=== PATIENT | female | born 1945 | race Caucasian/White ===

== ENCOUNTER 2016-04-13 16:25 | Inpatient (IN) | payer MEDICARE, BC ==
[2016-04-13 16:25] VITALS: BMI 42.3
[2016-04-13] MEDS ORDERED: SODIUM CHLORIDE 0.9% 3 ML FLUSH FLUSH PRN (16:36)
[2016-04-13] MEDS ORDERED: Albuterol/Ipratropium Neb 3 ML NEB NEB ONE (16:44)
[2016-04-13] MEDS ORDERED: METHYLPREDNISOLONE 125 MG/2 ML VIAL IV ONE (16:44)
[2016-04-13] MEDS ORDERED: ALBUTEROL 0.083% 3 ML NEB NEB ONE (16:44)
--- NOTE | 2016-04-13 16:49 | EDPRACDOC ---
- General Information Information Source: Patient Mode Of Arrival: Car - History of Present Illness Onset: 2 DAYS HPI: PT C/O COUGH CONGESTION SOB FOR 2-3 DAYS WITH SPUTUM PRODUCTION YELLOW. PT DENIES FEVERS AND CHILLS. PT IS ABLE TO SPEAK IN COMPLETE SENTENCES. SHE WAS SENT FROM PMD OFFICE FOR HYPOXIA PO2 HIGH 70'S LOW 80'S AFTER NEBS. Shortness of Breath: Moderate Relevant History: Reports: COPD Cough: Reports: Productive, Yellow Rhinorrhea: Reports: None Ear Symptoms: Reports: None SOB Worsens with: Reports: Exertion, Coughing, Lying Flat, VAUGHAN SOB Improves with: Reports: Nothing Associated Signs and symptoms: Reports: Cough <Tal Palomo - Last Filed: 04/13/16 17:13> <Noah Madison - Last Filed: 04/13/16 20:43> - General Information Chief Complaint: Dyspnea/Resp distress Stated Complaint: LOW O2 SAT SENT BY DOCTOR'S OFFICE Time Seen by Provider: 04/13/16 16:39 Home Medications: Home Medications Levothyroxine [Synthroid, Levoxyl] 125 mcg PO DAILY 06/14/12 Pravastatin [Pravachol] 40 mg PO HS 06/14/12 Tramadol HCl [Ultram] 50 mg PO Q6H PRN 06/14/12 Triamterene/Hydrochlorothiazid [Triamterene-Hctz 37.5-25 mg Tb] 1 tab PO DAILY 06/14/12 Albuterol Sulfate [Ventolin Hfa] 1 - 2 puff INH Q4H PRN 04/13/16 Aspirin (Enteric Coated) [Ecotrin] 81 mg PO DAILY 04/13/16 BuPROPion (Daily formulation) [Wellbutrin Xl] 150 mg PO BID 04/13/16 Cholecalciferol (Vitamin D3) [Vitamin D3] 5,000 unit PO DAILY 04/13/16 Cyanocobalamin (Vitamin B-12) [Vitamin B-12] 500 mcg SL DAILY 04/13/16 Docusate Sodium [Colace] 100 mg PO HS 04/13/16 Fluticasone Propionate [Flonase Nasal [place]] 1 spray ZAIN DAILY 04/13/16 Loratadine [Claritin] 10 mg PO DAILY 04/13/16 Metformin HCl [Metformin HCl ER] 500 mg PO QHS 04/13/16 Tiotropium [place] [Spiriva Respimat] 4 gm INH DAILY 04/13/16 Allergies/Adverse Reactions: Allergies Allergy/AdvReac Type Severity Reaction Status Date / Time No Known Allergies Allergy Verified 04/13/16 16:31 ED Past Medical History - History Reviewed Yes Nurses notes reviewed and agree except as marked Travel Outside of [place] in the Last 3 Months?: No - Patient Medical History Cardiac History: Reports: Hypertension, Hypercholesterolemia Respiratory History: Reports: Asthma, COPD Systemic History: Reports: Diabetes - Social Medical History Smoking Status: Heavy tobacco smoker (5 or more cigarettes/day or daily pipe/ cigar) ETOH: None Substance Abuse: None Lives With: Other Lives In: Home <Tal Palomo - Last Filed: 04/13/16 17:13> EDM Review of Systems - Review of Systems ROS Negative Except as Marked: Yes All systems reviewed and were negative except as marked Constitutional: Weakness. negative: Chills, Fever, Fatigue, Loss of Appetite Eyes: No Symptoms Reported. negative: Redness, Blurred Vision, Double Vision, Discharge, Pain, Light Sensitive, Photophobia Ears: No Symptoms Reported. negative: Pain, Hearing Loss, Drainage, Ear Pulling Throat: No Symptoms Reported. negative: Pain, Swelling Nose: No Symptoms Reported. negative: Congestion, Bleeding, Discharge, Injection, Swelling, Deformity, Ecchymosis, Tender, Abrasion, Laceration Mouth: No Symptoms Reported. negative: Pain, Drooling Respiratory: Cough, Shortness of Breath, Wheezing, Sputum. negative: Barky Cough, Brassy Cough, Hemoptysis Cardiovascular: No Symptoms Reported. negative: Chest Pain, Cyanosis, Edema, Orthopnea, Palpitations, PND, Syncope, Skin Mottling Gastrointestinal: No Symptoms Reported. negative: Pain, Constipation, Nausea, Vomiting, Diarrhea, Melena, Formula Intolerance Genitourinary: No Symptoms Reported. negative: Dysuria, Hematuria, Frequency, Discharge, Bleeding, Testicular Pain, Neurological: No Symptoms Reported. negative: Headache, Dizziness, Seizure, Numbness, Weakness, Speech Difficulty, Gait Difficulty Musculoskeletal: No Symptoms Reported. negative: Neck, Chestwall, Ribs, Back, Shoulder, Arm, Elbow, Forearm, Wrist, Hand, Pelvis, Hip, Femur, Knee, Leg, Ankle , Foot Integumentary: No Symptoms Reported. negative: Itching, Rash, Bruising, Wound Allergic/Immunologic: No Symptoms Reported. negative: Hives, Itching Hematologic: No Symptoms Reported. negative: Lymphadenopathy, Easy Bruising, Easy Bleeding Endocrine: No Symptoms Reported. negative: Weight Gain, Weight Loss Psychiatric: No Symptoms Reported. negative: Anxiety, Depression, Hallucinations, Insomnia, Suicidal <Tal Palomo - Last Filed: 04/13/16 17:13> - Physical Exam Constitutional: Alert (Awake) Oriented to: Time, Person, Place Last recorded Vital Signs: Last Vital Signs Temp 99.0 F 04/13/16 16:28 Pulse 105 04/13/16 16:28 Resp 22 04/13/16 16:28 BP 188/80 H 04/13/16 16:28 Pulse Ox 84 L 04/13/16 16:28 Oxygen Pulse Oxygen Saturation 84 O2 Device Room Air Oxygen Flow Rate Fraction of Inspired Oxygen ( FIO2) - HEENT Head: Normal ( normocephalic) Eye Exam: Normal (PERRL, EOMI, Sclera white) Oropharynx: Normal (Pharynx:Moist without exudate,Gums-no swelling) Tympanic Membrane: Normal ENT EAC: Normal TMJ: Normal Nose: No Symptoms Reported (septum midline) Neck: Normal (FROM, trachea at midline) - Respiratory/Cardiovascular Respiratory: Diminished, Rhonchi (BILATERAL), Wheezes (BILATERAL) Cardiovascular: Tachycardia - GI Auscultation: Normal (NABS) Palpation: Normal (Soft,No rebound or guarding, non distended) Tenderness: Non tender Velásquez's Sign: Negative - Bladder: Normal - Musculoskeletal Back: Normal (Non-Tender) Extremities: Normal (Normal tone, Pulses 2+ No cyanosis or edema, FROM) - Integumentary Skin: Normal, Warm, Dry Lymphatics: Normal (no adenopathy) - Neurologic Memory Impaired: Normal Motor Function: Normal (Normal tone, Pulses 2+ No cyanosis or edema, FROM) Cranial Nerve: Normal (CN II-X11 intact sensation, strength 5/5) Cerebellar: Normal Mood Description: Normal Perception: Normal <Tal Palomo - Last Filed: 04/13/16 17:13> - Physical Exam Last recorded Vital Signs: Last Vital Signs Temp 99.0 F 04/13/16 20:00 Pulse 102 04/13/16 20:00 Resp 20 04/13/16 20:00 BP 186/84 H 04/13/16 20:00 Pulse Ox 93 04/13/16 20:00 Oxygen Pulse Oxygen Saturation 92 O2 Device Nasal Cannula Oxygen Flow Rate 4 Fraction of Inspired Oxygen ( FIO2) <Noah Madison - Last Filed: 04/13/16 20:43> ED SOB MDM - Differential Diagnosis Differential Diagnosis: Asthma, Pnuemonia, Other (COPD EXACERBATION) - Results Result Diagrams: 04/13/16 16:56 04/13/16 16:56 - EKG EKG #1 EKG Time: 17:02 -: Yes EKG interpreted by me Rate: bpm: 101 [place]: LAD Rhythm: ST Block: LBBB Hypertrophy: None ST: Normal <Tal Palomo - Last Filed: 04/13/16 17:13> - Results Result Diagrams: 04/13/16 16:56 04/13/16 16:56 Results: WBC 14.7 xk/uL (3.8-10.8) H 04/13/16 16:56 RBC 4.85 xM/uL (4.20-5.40) 04/13/16 16:56 Hgb 13.6 g/dL (12.0-16.0) 04/13/16 16:56 Hct 42.3 % (36-47) 04/13/16 16:56 MCV 87 fL (81-99) 04/13/16 16:56 MCH 28.0 pg (27-32) 04/13/16 16:56 MCHC 32.0 g/dl (33-36) L 04/13/16 16:56 RDW 13.9 % (11.5-14.5) 04/13/16 16:56 Plt Count 354 xk/uL (130-400) 04/13/16 16:56 MPV 8.3 fL (7.4-10.4) 04/13/16 16:56 Neut % (Auto) Cancelled 04/13/16 16:56 Lymph % (Auto) Cancelled 04/13/16 16:56 [place] % (Auto) Cancelled 04/13/16 16:56 Eos % (Auto) Cancelled 04/13/16 16:56 Baso % (Auto) Cancelled 04/13/16 16:56 Absolute Neuts (auto) Cancelled 04/13/16 16:56 Absolute Lymphs (auto) Cancelled 04/13/16 16:56 Seg Neuts % (Manual) 87 % (45-76) H 04/13/16 16:56 Band Neutrophils % 2 % (0-5) 04/13/16 16:56 Lymphocytes % (Manual) 7 % (17-44) L 04/13/16 16:56 Monocytes % (Manual) 4 % (0-10) 04/13/16 16:56 Absolute Neutrophils 13.08 xk/uL (1.7-8.2) H 04/13/16 16:56 Absolute Lymphocytes 1.03 xk/uL (0.65-4.75) 04/13/16 16:56 Platelet Estimate Norm (NORMAL) 04/13/16 16:56 RBC Morphology Norm 04/13/16 16:56 PT 11.5 SEC (9.2-11.2) H 04/13/16 16:56 INR 1.1 04/13/16 16:56 APTT 25.0 SEC (22-35) 04/13/16 16:56 Puncture Site Right radial 04/13/16 16:45 pH 7.360 pH UNITS (7.35-7.45) 04/13/16 16:45 pCO2 58.0 mmHg (35-45) H 04/13/16 16:45 pO2 41.0 mmHg (80-100) L* 04/13/16 16:45 HCO3 32.8 MMOL/L (22-26) H 04/13/16 16:45 Total CO2 34.6 MMOL/L (23-27) H 04/13/16 16:45 Base Excess 5.6 (+/- 2) H 04/13/16 16:45 FiO2 % 21% 04/13/16 16:45 Specimen Drawn By Ga 04/13/16 16:45 Sodium 134 mEq/L (137-146) L 04/13/16 16:56 Potassium 3.8 mEq/L (3.5-5.1) 04/13/16 16:56 Chloride 92 mEq/L (98-107) L 04/13/16 16:56 Carbon Dioxide 34 mMOL/L (22-33) H 04/13/16 16:56 Anion Gap 12 mEq/L (8-16) 04/13/16 16:56 BUN 20 MG/DL (7-17) H 04/13/16 16:56 Creatinine 0.90 MG/DL (0.52-1.04) 04/13/16 16:56 Estimated GFR (MDRD) > 60 mL/min (>=60) 04/13/16 16:56 Glucose 138 MG/DL (70-99) H 04/13/16 16:56 Calculated Osmolality 263 MOs/Kg (270-290) L 04/13/16 16:56 Lactic Acid 0.8 mEq/L (0.7-2.1) 04/13/16 16:56 Calcium 9.2 MG/DL (8.4-10.2) 04/13/16 16:56 Corrected Calcium 9.8 MG/DL (8.4-10.2) 04/13/16 16:56 Total Bilirubin 0.4 MG/DL (0.2-1.3) 04/13/16 16:56 AST 35 IU/L (14-36) 04/13/16 16:56 ALT 48 IU/L (9-52) 04/13/16 16:56 Alkaline Phosphatase 108 IU/L (55-165) 04/13/16 16:56 Creatine Kinase 108 IU/L (30-134) 04/13/16 16:56 Troponin I 0.05 ng/mL (<.04) 04/13/16 16:56 Bva-S-Ceoguahpdig Pept 7120 pg/mL (0-900) H 04/13/16 16:56 Total Protein 6.6 G/DL (6.3-8.2) 04/13/16 16:56 Albumin 3.4 G/DL (3.5-5.0) L 04/13/16 16:56 Urine Color Yellow 04/13/16 17:40 Urine Clarity Hazy 04/13/16 17:40 Urine pH 6.0 (5.0-8.0) 04/13/16 17:40 Ur Specific [place] 1.030 04/13/16 17:40 Urine Protein 1+ (NEG/TRACE) H 04/13/16 17:40 Urine Glucose (UA) Neg (NEGATIVE) 04/13/16 17:40 Urine Ketones Neg (NEGATIVE) 04/13/16 17:40 Urine Occult Blood Neg (NEG/TRACE) 04/13/16 17:40 Urine Nitrite Neg (NEGATIVE) 04/13/16 17:40 Urine Bilirubin Neg (NEGATIVE) 04/13/16 17:40 Urine Urobilinogen 0.2 MG/DL (0-1) 04/13/16 17:40 Ur Leukocyte Esterase 1+ (NEGATIVE) H 04/13/16 17:40 Urine RBC 0-2 (0-5) 04/13/16 17:40 Urine WBC 20-30 (0-5) H 04/13/16 17:40 Ur Epithelial Cells 4+ 04/13/16 17:40 Urine Bacteria 3+ (NEG/FEW) H 04/13/16 17:40 Hyaline Casts 10-20 (0-2) H 04/13/16 17:40 Lab Results 04/13/16 04/13/16 04/13/16 17:40 16:56 16:56 WBC 14.7 H RBC 4.85 Hgb 13.6 Hct 42.3 MCV 87 MCH 28.0 MCHC 32.0 L RDW 13.9 Plt Count 354 MPV 8.3 Neut % (Auto) Cancelled Lymph % (Auto) Cancelled [place] % (Auto) Cancelled Eos % (Auto) Cancelled Baso % (Auto) Cancelled Absolute Neuts (auto) Cancelled Absolute Lymphs (auto) Cancelled Seg Neuts % (Manual) 87 H Band Neutrophils % 2 Lymphocytes % (Manual) 7 L Monocytes % (Manual) 4 Absolute Neutrophils 13.08 H Absolute Lymphocytes 1.03 Platelet Estimate Norm RBC Morphology Norm PT 11.5 H INR 1.1 APTT 25.0 Puncture Site pH pCO2 pO2 HCO3 Total CO2 Base Excess FiO2 % Specimen Drawn By Sodium Potassium Chloride Carbon Dioxide Anion Gap BUN Creatinine Estimated GFR (MDRD) Glucose Calculated Osmolality Lactic Acid Calcium Corrected Calcium Total Bilirubin AST ALT Alkaline Phosphatase Creatine Kinase Troponin I Xwg-[id number] Pept Total Protein Albumin Urine Color Yellow Urine Clarity Hazy Urine pH 6.0 Ur Specific [place] 1.030 Urine Protein 1+ H Urine Glucose (UA) Neg Urine Ketones Neg Urine Occult Blood Neg Urine Nitrite Neg Urine Bilirubin Neg Urine Urobilinogen 0.2 Ur Leukocyte Esterase 1+ H Urine RBC 0-2 Urine WBC 20-30 H Ur Epithelial Cells 4+ Urine Bacteria 3+ H Hyaline Casts 10-20 H 04/13/16 04/13/16 04/13/16 16:56 16:56 16:45 WBC RBC Hgb Hct MCV MCH MCHC RDW Plt Count MPV Neut % (Auto) Lymph % (Auto) [place] % (Auto) Eos % (Auto) Baso % (Auto) Absolute Neuts (auto) Absolute Lymphs (auto) Seg Neuts % (Manual) Band Neutrophils % Lymphocytes % (Manual) Monocytes % (Manual) Absolute Neutrophils Absolute Lymphocytes Platelet Estimate RBC Morphology PT INR APTT Puncture Site Right radial pH 7.360 pCO2 58.0 H pO2 41.0 L* HCO3 32.8 H Total CO2 34.6 H Base Excess 5.6 H FiO2 % 21% Specimen Drawn By Ga Sodium 134 L Potassium 3.8 Chloride 92 L Carbon Dioxide 34 H Anion Gap 12 BUN 20 H Creatinine 0.90 Estimated GFR (MDRD) > 60 Glucose 138 H Calculated Osmolality 263 L Lactic Acid 0.8 Calcium 9.2 Corrected Calcium 9.8 Total Bilirubin 0.4 AST 35 ALT 48 Alkaline Phosphatase 108 Creatine Kinase 108 Troponin I 0.05 Ptr-S-Snzdpmdsnen Pept 7120 H Total Protein 6.6 Albumin 3.4 L Urine Color Urine Clarity Urine pH Ur Specific [place] Urine Protein Urine Glucose (UA) Urine Ketones Urine Occult Blood Urine Nitrite Urine Bilirubin Urine Urobilinogen Ur Leukocyte Esterase Urine RBC Urine WBC Ur Epithelial Cells Urine Bacteria Hyaline Casts <Noah Madison - Last Filed: 04/13/16 20:43> <Tal Palomo - Last Filed: 04/13/16 17:13> - Departure Yes I personally saw and evaluated the patient. Disposition: Admit IP To This Hospital Decision to Admit Time: 18:20 Decision to admit date: 04/13/16 Decision to admit: from ED <Noah Madison - Last Filed: 04/13/16 20:43> - Departure Condition: Stable Final Diagnosis: Acute respiratory failure with hypoxia, Elevated brain natriuretic peptide (BNP ) level, COPD exacerbation, Acute cystitis without hematuria
[2016-04-13 16:50] LABS: BEb 5.6 (+/- 2); TCO2 34.6 MMOL/L (23-27)
[2016-04-13 16:51] LABS: ABG Draw Site Right Radial; ABG Draw Tech GA; ALLEN'S TEST PASS
[2016-04-13 17:06] LABS: MPV 8.3 fL (7.4-10.4)
[2016-04-13 17:27] LABS: BLOOD UREA NITROGEN 20 MG/DL (7-17); CALC CORRECTED 9.8 MG/DL (8.4-10.2); CALCIUM 9.2 MG/DL (8.4-10.2); CALCULATED OSMOLALITY 263 MOs/Kg (270-290); CHLORIDE 92 mEq/L (98-107); GLUCOSE 138 MG/DL (70-99); SODIUM LEVEL 134 mEq/L (137-146); TOTAL PROTEIN 6.6 G/DL (6.3-8.2)
[2016-04-13 17:30] LABS: PT-INR 1.1
[2016-04-13 17:32] LABS: SEG NEUTROPHIL 87 % (45-76)
[2016-04-13 17:35] LABS: CPK TOTAL WITH POSSIBLE MB 108 IU/L (30-134)
--- NOTE | 2016-04-13 17:42 | DIRPT ---
CLINICAL DATA: 70-year-old female with history of coughing congestion with shortness of breath for the past 2-3 days with yellow sputum production. No fever or chills. EXAM: PORTABLE CHEST 1 VIEW COMPARISON: Chest x-ray 09/29/2011. FINDINGS: Mild diffuse peribronchial cuffing. No acute consolidative airspace disease. No pleural effusions. Cephalization of the pulmonary vasculature, without juma pulmonary edema. Heart size is mildly enlarged. The patient is rotated to the right on today's exam, resulting in distortion of the mediastinal contours and reduced diagnostic sensitivity and specificity for mediastinal pathology. IMPRESSION: 1. Diffuse peribronchial cuffing suggesting an acute bronchitis. 2. However, there is also mild cardiomegaly and some cephalization of the pulmonary vasculature. Clinical correlation to exclude signs are symptoms of developing congestive heart failure is also suggested. Electronically Signed By: Pelon Lopez M.D. On: 04/13/2016 17:39
[2016-04-13] MEDS ORDERED: FUROSEMIDE 40 MG/4 ML VIAL IV ONE (17:48)
[2016-04-13] MEDS ORDERED: ASPIRIN 325 MG TAB PO ONE (17:49)
[2016-04-13] MEDS ORDERED: AZITHROMYCIN 500 MG in D5W 250 ML IV ONE (17:49)
[2016-04-13] MEDS ORDERED: CEFTRIAXONE 2 GM in D5W 100 ML IV ONE (17:49)
[2016-04-13 17:53] LABS: LEUKOCYTES/URINE 1+ (NEGATIVE); NITRITE/URINE NEG (NEGATIVE); URINE OCCULT BLOOD NEG (NEG/TRACE)
[2016-04-13 17:57] LABS: RBC/URINE 0-2 (0-5); WBC/URINE 20-30 (0-5)
[2016-04-13] MEDS ORDERED: SODIUM CHLORIDE 0.9% 3 ML FLUSH FLUSH SCH (18:00)
--- NOTE | 2016-04-13 18:36 | HISTPHYS ---
- Chief Complaint shortness of breath - History of Present Illness PRIMARY CARE PROVIDER: Ester Siddiqui HPI: The patient is a 70 yo woman with hypertension, hyperlipidemia, diabetes, and COPD, who smokes, who presents with acute shortness of breath and not feeling well. She reports she was in her usual state of health until 4 days ago, when she started feeling bad; she had increased shortness of breath and increased fatigue. Each day she was more short of breath, especially with any exertion, and by today she is short of breath even while sitting. She had some coughing initially but today she had even more coughing, which is productive of white sputum today. She has had wheezing also. By last night, she started having significant diaphoresis, and she felt clammy. She has not really been able to do much at all over the last several days because she does not feel well. She has not been eating much over this time and at her doctor's office visit she was told that she had lost some weight. She has not noticed any weight gain, leg swelling, bloating, or clothes fitting more tightly. She did not have any fevers, chills, or chest pain. Onset: initial symptoms started 4 days ago, much more short of breath today. Duration: intermittent. Location: generalized. Character: Mostly dyspnea on exertion at first. Now short of breath at rest and can't get a good breath. Alleviated by: Nothing. Exacerbated by: exertion. Associated Symptoms: Coughing productive of white sputum. Wheezing. Diaphoresis and becoming clammy. Decreased PO intake. No fever or chills. No chest pain, palpitations, weight gain, or leg swelling. Nausea but no abdominal pain. Treatments: none at home except usual medications. - Medical History Cardiac History: Reports: Hypertension, Stress Test (at [facility] September 2011, negative.), Hypercholesterolemia, Other (LEFT BUNDLE BRANCH BLOCK, noted by [facility] 2011.) Respiratory History: Reports: Asthma, COPD (does not wear home oxygen) Systemic History: Reports: Diabetes (Type 2, borderline), Hypothyroidism - Surgical History Reports: Hysterectomy, Other (PARATHYROIDECTOMY) - Medictions/Allergies Allergies No Known Allergies Allergy (Verified 04/13/16 16:31) Current Medication List: Reviewed Home Medications Levothyroxine [Synthroid, Levoxyl] 125 mcg PO DAILY 06/14/12 Pravastatin [Pravachol] 40 mg PO HS 06/14/12 Tramadol HCl [Ultram] 50 mg PO Q6H PRN 06/14/12 Triamterene/Hydrochlorothiazid [Triamterene-Hctz 37.5-25 mg Tb] 1 tab PO DAILY 06/14/12 Albuterol Sulfate [Ventolin Hfa] 1 - 2 puff INH Q4H PRN 04/13/16 BuPROPion (Daily formulation) [Wellbutrin Xl] 150 mg PO BID 04/13/16 Cholecalciferol (Vitamin D3) [Vitamin D3] 5,000 unit PO DAILY 04/13/16 Cyanocobalamin (Vitamin B-12) [Vitamin B-12] 500 mcg SL DAILY 04/13/16 Fluticasone Propionate [Flonase Nasal [place]] 1 spray ZAIN DAILY 04/13/16 Metformin HCl [Metformin HCl ER] 500 mg PO QHS 04/13/16 Tiotropium [place] [Spiriva Respimat] 4 gm INH DAILY 04/13/16 - Family History Reports: Diabetes (Brother), Cancer (Father: pancreatic cancer 60yo.), Cardiac Disorders (Brother with [place] and CABG. Mother: CHF but in her 90s.) - Social History Smoking Status: Heavy tobacco smoker (5 or more cigarettes/day or daily pipe/ cigar) (Smokes 1 ppd. Started 17 yo.) Social History: Denies: Alcohol Use, Substance Use Disorder - Review of Systems GENERAL: Diaphoresis and becoming clammy. No Fever, chills. Positive for fatigue /malaise. Decreased PO intake. HEENT: No ear pain or discharge. No nasal discharge or bleeding. No throat pain or swelling. No eye pain or eye redness. RESPIRATORY: Cough, wheezing, and shortness of breath. CARDIOVASCULAR: No chest pain or palpitations. GI: Nausea. No abdominal pain, vomiting, diarrhea, constipation, or bloody stool. NEUROLOGICAL: No headache or focal weakness. INTEGUMENT: no rashes, itching, or lesions. LYMPHATIC SYSTEM: no lymph node swelling or pain. MUSCULOSKELETAL: no new pain or joint swelling. GENITOURINARY: No dysuria or hematuria. ENDOCRINE: No polyuria or polydipsia. HEME: No chronic anemia, bleeding, or easy bruising. - Physical Exam Vital Signs: Initial Vitals Temperature 99.0 F 04/13/16 16:28 Pulse Rate 105 01/16/17 16:28 Respiratory Rate 22 04/13/16 16:28 Blood Pressure 188/80 H 04/13/16 16:28 Pulse Oxygen Saturation 84 L 04/13/16 16:28 Weight: 122.7 kg Height: 5 feet 7 inches BMI: 42.4 - Other Exam Other Exam Findings: GENERAL: Ill-appearing, obese, in acute distress. HEENT: Normocephalic, atraumatic; pupils equal and round. Nares patent, without discharge or bleeding. No oropharyngeal lesions or erythema. Mucous membranes are dry. NECK: is supple, no masses, trachea midline. Large neck circumference. RESPIRATORY: Clear to auscultation bilaterally. Chest wall movements are symmetric. Tachypnea noted. No use of accessory muscles to breathe. Rales noted bilaterally. Coarse breath sounds with wheezing bilaterally. CARDIOVASCULAR: Normal S1, S2. Murmur 2/6 systolic. No rubs, or gallops. PMI non -displaced. Carotids: no carotid bruits. Mild tachycardia. DP pulses 2+ bilaterally. Slight JVD. GI: soft, nontender, non-distended, normal active bowel sounds. No hepatosplenomegaly. INTEGUMENT: Clean, slightly diaphoretic, and intact. No rashes. No lesions. MUSCULOSKELETAL: Moving all extremities. No cyanosis. No clubbing. Edema: trace lower extremity edema bilaterally. NEUROLOGICAL: Cranial nerves 2-12 grossly intact. Motor 5/5 throughout. Reflexes : 2+ bilaterally. Babinski: toes downgoing bilaterally. Intact Finger to nose. Sensory grossly intact to light touch. Intact rapid alternating movements bilaterally. No pronator drift. PSYCHIATRIC: Fully oriented. Normal and appropriate affect. LYMPHATIC: No cervical lymphadenopathy. No supraclavicular lymphadenopathy. - Lab Results Laboratory Results - last 24 hr 04/13/16 04/13/16 04/13/16 16:45 16:56 16:56 WBC RBC Hgb Hct MCV MCH MCHC RDW Plt Count MPV Neut % (Auto) Lymph % (Auto) Dewitt % (Auto) Eos % (Auto) Baso % (Auto) Absolute Neuts (auto) Absolute Lymphs (auto) Seg Neuts % (Manual) Band Neutrophils % Lymphocytes % (Manual) Monocytes % (Manual) Absolute Neutrophils Absolute Lymphocytes Platelet Estimate RBC Morphology PT INR APTT Puncture Site Right radial pH 7.360 pCO2 58.0 H pO2 41.0 L* HCO3 32.8 H Total CO2 34.6 H Base Excess 5.6 H FiO2 % 21% Specimen Drawn By Ga Sodium 134 L Potassium 3.8 Chloride 92 L Carbon Dioxide 34 H Anion Gap 12 BUN 20 H Creatinine 0.90 Estimated GFR (MDRD) > 60 Glucose 138 H Calculated Osmolality 263 L Lactic Acid 0.8 Calcium 9.2 Corrected Calcium 9.8 Total Bilirubin 0.4 AST 35 ALT 48 Alkaline Phosphatase 108 Creatine Kinase 108 Troponin I 0.05 Xcc-S-Peicuznwrme Pept 7120 H Total Protein 6.6 Albumin 3.4 L Urine Color Urine Clarity Urine pH Ur Specific [place] Urine Protein Urine Glucose (UA) Urine Ketones Urine Occult Blood Urine Nitrite Urine Bilirubin Urine Urobilinogen Ur Leukocyte Esterase Urine RBC Urine WBC Ur Epithelial Cells Urine Bacteria Hyaline Casts 04/13/16 04/13/16 04/13/16 16:56 16:56 17:40 WBC 14.7 H RBC 4.85 Hgb 13.6 Hct 42.3 MCV 87 MCH 28.0 MCHC 32.0 L RDW 13.9 Plt Count 354 MPV 8.3 Neut % (Auto) Cancelled Lymph % (Auto) Cancelled Dewitt % (Auto) Cancelled Eos % (Auto) Cancelled Baso % (Auto) Cancelled Absolute Neuts (auto) Cancelled Absolute Lymphs (auto) Cancelled Seg Neuts % (Manual) 87 H Band Neutrophils % 2 Lymphocytes % (Manual) 7 L Monocytes % (Manual) 4 Absolute Neutrophils 13.08 H Absolute Lymphocytes 1.03 Platelet Estimate Norm RBC Morphology Norm PT 11.5 H INR 1.1 APTT 25.0 Puncture Site pH pCO2 pO2 HCO3 Total CO2 Base Excess FiO2 % Specimen Drawn By Sodium Potassium Chloride Carbon Dioxide Anion Gap BUN Creatinine Estimated GFR (MDRD) Glucose Calculated Osmolality Lactic Acid Calcium Corrected Calcium Total Bilirubin AST ALT Alkaline Phosphatase Creatine Kinase Troponin I Hqq-W-Zruthtzznlr Pept Total Protein Albumin Urine Color Yellow Urine Clarity Hazy Urine pH 6.0 Ur Specific [place] 1.030 Urine Protein 1+ H Urine Glucose (UA) Neg Urine Ketones Neg Urine Occult Blood Neg Urine Nitrite Neg Urine Bilirubin Neg Urine Urobilinogen 0.2 Ur Leukocyte Esterase 1+ H Urine RBC 0-2 Urine WBC 20-30 H Ur Epithelial Cells 4+ Urine Bacteria 3+ H Hyaline Casts 10-20 H - Diagnostic Findings DIAGNOSTIC DATA: EK bpm. Sinus tachycardia. Left bundle branch block. Reviewed EKG personally. IMAGING: Chest x-ray, viewed personally: CLINICAL DATA: 70-year-old female with history of coughing congestion with shortness of breath for the past 2-3 days with yellow sputum production. No fever or chills. EXAM: PORTABLE CHEST 1 VIEW COMPARISON: Chest x-ray 09/29/2011. FINDINGS: Mild diffuse peribronchial cuffing. No acute consolidative airspace disease. No pleural effusions. Cephalization of the pulmonary vasculature, without juma pulmonary edema. Heart size is mildly enlarged. The patient is rotated to the right on today's exam, resulting in distortion of the mediastinal contours and reduced diagnostic sensitivity and specificity for mediastinal pathology. IMPRESSION: 1. Diffuse peribronchial cuffing suggesting an acute bronchitis. 2. However, there is also mild cardiomegaly and some cephalization of the pulmonary vasculature. Clinical correlation to exclude signs are symptoms of developing congestive heart failure is also suggested. - Assessment (1) Acute respiratory failure with hypoxia J96.01 - ACUTE RESPIRATORY FAILURE WITH HYPOXIA Acute Present on Admission: Yes Patient has dyspnea and is not improving. Patient's PO2 is low at only 41%. Peripheral O2 sat 84%. COPD exacerbation is certainly part of the cause of her acute respiratory failure, but suspect she also may have a component of early CHF. Plan: Place patient on oxygen by Venti Mask 40% and increase as needed. Monitor oxygen saturation levels and keep O2 sats greater than 92%. Update: Patient was improving but then slightly worse after talking. Trial of BiPAP, 10/5, and titrate. (2) Elevated brain natriuretic peptide (BNP) level R79.89 - OTHER SPECIFIED ABNORMAL FINDINGS OF BLOOD CHEMISTRY Acute Present on Admission: Yes Elevated BNP and CXR with cardiomegaly and possible mild pulmonary edema. No history of CHF. Does have LBBB. Echocardiogram results from past: none. Plan: Admit to PCU with telemetry. Consider mild CHF as possible diagnosis. CHF order set. Diet of 2 g Na. Daily weights with strict I/O's. No IVF unless patient is NPO. As tolerated, give beta pierre. Give IGL inhibitor or ARB. Give Lasix IV scheduled. Replace potassium. Monitor heart rate, blood pressure, and respiratory status carefully. Provide support with oxygen as needed. Provide teaching regarding heart failure, 2g Na diet, daily weights, signs of acute heart failure. Will consult extraction supervisor for opinion. Discussed case in detail with Dr. Aponte , who will consult. Appreciate assistance from Dr. Aponte. (3) Hypertensive urgency I16.0 - HYPERTENSIVE URGENCY Acute Present on Admission: Yes Blood pressures 188-200/70-93 in the emergency department. Plan: Start carvedilol bid. Start lisinopril. Lasix ordered. Additional medications if needed. (4) COPD exacerbation J44.1 - CHRONIC OBSTRUCTIVE PULMONARY DISEASE W (ACUTE) EXACERBATION Acute Present on Admission: Yes COPD exacerbation, severe. Plan: Nebs of Duoneb q 6 hours scheduled and albuterol q 2 hours prn. Sputum culture ordered. IV ceftriaxone and IV azithromycin. IV methylprednisolone. Continuous oxygen support. Keep sats below 95% due to COPD. (5) Tobacco abuse Z72.0 - TOBACCO USE Acute Present on Admission: Yes Counseled to quit. (6) Acute cystitis without hematuria N30.00 - ACUTE CYSTITIS WITHOUT HEMATURIA Suspected Present on Admission: Yes Did not have dysuria. Plan: Cultures ordered. Cover empirically with IV ceftriaxone. Await culture results. (7) Bronchopneumonia J18.0 - BRONCHOPNEUMONIA, UNSPECIFIED ORGANISM Suspected Present on Admission: Yes CXR suggestive of bronchitis or infectious process. She may have bronchitis or bronchopneumonia. Plan: Cultures ordered. Cover empirically with IV ceftriaxone and IV azithromycin. (8) Left bundle branch block (LBBB) I44.7 - LEFT BUNDLE-BRANCH BLOCK, UNSPECIFIED Acute Present on Admission: Yes Initially thought that LBBB could be new; there was no old EKG for comparison. Discussed case with Dr. Aponte, who reviewed his office records to find that she did have LBBB when she was evaluated in 2012. Greatly appreciate the assistance of Dr. Aponte. (9) Abnormal glucose R73.09 - OTHER ABNORMAL GLUCOSE Acute Present on Admission: Yes Patient reports she has borderline diabetes. Plan: Hold oral diabetes medications. Check fingerstick blood sugars q ac and hs. Sliding scale insulin. Ordered A1c and urine microalbumin. - Plan Discussed with patient that she is at risk for obstructive sleep apnea; relative who was with her stated that the patient does snore and seem to stop breathing for a second sometimes while asleep. Recommended that patient follow up with her primary care doctor to see if she would benefit from a sleep study. In summary, this patient is acutely and critically ill. The patient requires treatment of vital organ failure and measures to prevent further life- threatening deterioration of condition. Discussed case in detail with extraction supervisor, Dr. Aponte. I have spent 60 min in the critical care of this patient. Case Care Discussed with: Patient, Consultants (Turn Machine Operator, Dr. Aponte), Family, Nursing Staff Total Time: 60 min Critical Care: Yes Code: 291
[2016-04-13] MEDS ORDERED: TRAMADOL HCL 50 MG TAB PO PRN (19:54)
[2016-04-13] MEDS ORDERED: MORPHINE 2 MG/ML INJECTION IV PRN (20:25)
[2016-04-13] MEDS ORDERED: NITROGLYCERINE 0.4 MG TAB SL PRN (20:25)
[2016-04-13] MEDS ORDERED: LISINOPRIL 5 MG TAB PO ONE (20:29)
[2016-04-13] MEDS ORDERED: BISACODYL 5 MG TAB PO PRN (20:35)
[2016-04-13] MEDS ORDERED: ACETAMINOPHEN 325 MG SUPP PR PRN (20:35)
[2016-04-13] MEDS ORDERED: GLUCOSE (ORAL GEL) 15 GM TUBE PO PRN (20:35)
[2016-04-13] MEDS ORDERED: GUAIFEN 100 MG-DEXTROMETH 10 MG PER 5 ML PO PRN (20:35)
[2016-04-13] MEDS ORDERED: PROMETHAZINE 25 MG/ML VIAL IV PRN (20:35)
[2016-04-13] MEDS ORDERED: ALBUTEROL 0.083% 3 ML NEB NEB PRN (20:35)
[2016-04-13] MEDS ORDERED: GLUCAGON 1 MG VIAL SQ PRN (20:35)
[2016-04-13] MEDS ORDERED: ONDANSETRON HCL 4 MG/2 ML VIAL IV PRN (20:35)
[2016-04-13] MEDS ORDERED: TEMAZEPAM 15 MG CAP PO PRN (20:35)
[2016-04-13] MEDS ORDERED: SIMETHICONE 80 MG TAB PO PRN (20:35)
[2016-04-13] MEDS ORDERED: ACETAMINOPHEN 325 MG/TAB TABLET PO PRN (20:35)
[2016-04-13] MEDS ORDERED: DEXTROSE 25 GM/50 ML PFS IV PRN (20:35)
[2016-04-13] MEDS ORDERED: BENZONATATE 100 MG PERLES PO PRN (20:35)
[2016-04-13] MEDS ORDERED: SENNA CONCENTRATE TAB PO PRN (20:35)
[2016-04-13] MEDS ORDERED: Vaccine Screening Complete SCH (21:00)
[2016-04-13] MEDS ORDERED: Pharmacy Order Set Alert SCH (21:00)
[2016-04-13] MEDS ORDERED: FLUTICASONE PROPIONATE 16 GM BOT NAS SCH (21:00)
[2016-04-13] MEDS: LISINOPRIL 5 MG TAB PO SCH (22:17)
[2016-04-13] MEDS: BuPROPion 150 MG XL TAB PO SCH (22:37)
[2016-04-13] MEDS: ATORVASTATIN 40 MG TAB PO SCH (22:37)
[2016-04-13] MEDS: CARVEDILOL 6.25 MG TAB PO SCH (22:37)
[2016-04-13] MEDS: ENOXAPARIN 60 MG/0.6 ML PFS SQ SCH (22:38)
[2016-04-13] MEDS: FUROSEMIDE 40 MG/4 ML VIAL IV SCH (22:38)
[2016-04-13] MEDS: Docusate Sodium 100 MG CAP PO SCH (22:38)
[2016-04-13] MEDS: REGULAR INSULIN 100 UNITS/ML - 3 ML VIAL SQ SCH (22:39)
[2016-04-14] MEDS: METHYLPREDNISOLONE 125 MG/2 ML VIAL IV SCH ×3 (00:19→17:04)
[2016-04-14] MEDS: Albuterol/Ipratropium Neb 3 ML NEB NEB SCH ×4 (01:35→21:25)
[2016-04-14 05:51] LABS: MPV 8.7 fL (7.4-10.4)
[2016-04-14 06:05] LABS: BLOOD UREA NITROGEN 24 MG/DL (7-17); CALCULATED OSMOLALITY 264 MOs/Kg (270-290); CHLORIDE 87 mEq/L (98-107); GLUCOSE 130 MG/DL (70-99); SODIUM LEVEL 134 mEq/L (137-146)
[2016-04-14] MEDS: REGULAR INSULIN 100 UNITS/ML - 3 ML VIAL SQ SCH ×4 (06:30→19:29)
[2016-04-14] MEDS: LEVOTHYROXINE 125 MCG (0.125 MG) TAB PO SCH (06:30)
[2016-04-14] MEDS: FUROSEMIDE 40 MG/4 ML VIAL IV SCH ×3 (06:31→19:31)
--- NOTE | 2016-04-14 07:54 | PCM.CARDCO ---
Consultation Date: 04/14/16 Requesting Physician: Kai Trevino Workers Compensation Paralegal: Milind Aponte Consult Reason: CHF - History of Present Illness She is a 70-year-old woman with a history of COPD left bundle branch block who was evaluated in 2011 by with left bundle branch block normal ejection fraction and normal myocardial perfusion image, however the EF by nuclear was 46%. She was not diagnosed with heart failure at that time. Now admitted to the hospital with hypoxemia shortness of breath her BNP level severely elevated. Her chest x-ray is abnormal with findings of both chronic lung disease as well as heart failure. She is at risk of heart failure with hypertension and left bundle branch block. She relates an abrupt change in her symptoms prior to presented to the hospital that she correlates with cough and sputum production increased wheezing. She had a rapid progression exertional dyspnea to being short of breath at rest with hypoxia also relates she had orthopnea and PND. She is unaware she had edema. She had salt to her diet. She has had no chest pain palpitation or syncope. Chief Complaint: shortness of breath - Past Medical and Surgical History Cardiac History: Reports: Hypertension, Stress Test (at [facility] September 2011, negative.), Hypercholesterolemia, Other (LEFT BUNDLE BRANCH BLOCK, noted by [facility] 2011.) Respiratory History: Reports: Asthma, COPD (does not wear home oxygen) Systemic History: Reports: Diabetes (Type 2, borderline), Hypothyroidism Psychological History: Denies: Alcoholism, Substance Use Disorder Past Surgical History: Reports: Hysterectomy, Other (PARATHYROIDECTOMY) Allergies No Known Allergies Allergy (Verified 04/13/16 16:31) Home Medications Levothyroxine [Synthroid, Levoxyl] 125 mcg PO DAILY 06/14/12 Pravastatin [Pravachol] 40 mg PO HS 06/14/12 Tramadol HCl [Ultram] 50 mg PO Q6H PRN 06/14/12 Triamterene/Hydrochlorothiazid [Triamterene-Hctz 37.5-25 mg Tb] 1 tab PO DAILY 06/14/12 Albuterol Sulfate [Ventolin Hfa] 1 - 2 puff INH Q4H PRN 04/13/16 Aspirin (Enteric Coated) [Ecotrin] 81 mg PO DAILY 04/13/16 BuPROPion (Daily formulation) [Wellbutrin Xl] 150 mg PO BID 04/13/16 Cholecalciferol (Vitamin D3) [Vitamin D3] 5,000 unit PO DAILY 04/13/16 Cyanocobalamin (Vitamin B-12) [Vitamin B-12] 1,000 mcg SL DAILY 04/13/16 Docusate Sodium [Colace] 100 mg PO HS 04/13/16 Fluticasone Propionate [Flonase Nasal [place]] 2 spray ZAIN DAILY 04/13/16 Loratadine [Claritin] 10 mg PO DAILY 04/13/16 Metformin HCl [Metformin HCl ER] 500 mg PO QHS 04/13/16 Tiotropium [place] [Spiriva Respimat] 4 gm INH DAILY 04/13/16 Ubidecarenone [Coq-10] 04/13/16 - Social History Smoking Status: Heavy tobacco smoker (5 or more cigarettes/day or daily pipe/ cigar) (Smokes 1 ppd. Started 17 yo.) Social History: Denies: Alcohol Use, Substance Use Disorder - Family History Reports: Diabetes (Brother), Cancer (Father: pancreatic cancer 60yo.), Cardiac Disorders (Brother with [place] and CABG. Mother: CHF but in her 90s.) - Review of Systems Yes All systems reviewed and were negative except as marked Constitutional: Weakness. negative: Chills, Fever, Fatigue, Loss of Appetite - Respiratory Cough, Shortness of Breath, Wheezing, Sputum - Cardiovascular Orthopnea, PND - Physical Exam Constitutional: No apparent distress (She relates she is quite improved since admission to the hospital), Alert (Awake) Oriented to: Time, Person, Place Exam: Last Vital Signs Temp 97.8 F 04/14/16 03:50 Pulse 77 04/14/16 06:00 Resp 32 H 04/14/16 04:00 BP 127/58 L 04/14/16 03:50 Pulse Ox 93 04/14/16 04:00 Intake & Output 04/13/16 04/13/16 04/14/16 15:59 23:59 07:59 Intake Total 150 Output Total 600 700 Balance -450 -700 - HEENT Head: Normal (She has no neck vein distention bruit or thyromegaly) Eye: Normal (PERRL, EOMI, Sclera white) Oropharynx: Normal (Pharynx:Moist without exudate,Gums-no swelling) Tympanic Membrane: Normal ENT EAC: Normal TMJ: Normal Nose: No Symptoms Reported (septum midline) - Respiratory/Cardiovascular Respiratory: Diminished (Diminished breath sounds no rales or wheezing today), Wheezes (BILATERAL). negative: Rhonchi (BILATERAL) Cardiovascular: Other (Distant regular rhythm S1 normal S2 paradoxical no murmur gallop) - GI Auscultation: Normal (No enlargement in liver spleen aorta nontender nondistended active bowel sounds) Palpation: Normal (Soft,No rebound or guarding, non distended) Tenderness: Non tender - Musculoskeletal Back: Normal (Non-Tender) Extremities: Normal (Normal tone, Pulses 2+ No cyanosis or edema, FROM), Edema ( Plus one pretibial edema), Femoral Pulse, Pedal Edema, Pedal Pulse, Radial Pulse. negative: Calf Tenderness, Clubbing, Cyanosis - Integumentary Skin: Normal, Warm, Dry. negative: Diaphoretic, Pale, Rash, Mottling, Jaundice Lymphatics: Normal (no adenopathy) - Neurologic Memory Impaired: Normal Cerebellar: Normal Mood Description: Normal Perception: Normal - Lab Results Laboratory Tests 04/13/16 04/13/16 04/13/16 16:45 16:56 16:56 WBC 14.7 H Hgb 13.6 Plt Count 354 Seg Neuts % (Manual) 87 H Absolute Neutrophils 13.08 H pH 7.360 pCO2 58.0 H pO2 41.0 L* FiO2 % 21% Potassium Creatinine Troponin I 0.05 Ige-W-Rvavqychoin Pept 7120 H 04/13/16 04/14/16 04/14/16 20:20 04:40 04:40 WBC 12.5 H Hgb 13.6 Plt Count 373 Seg Neuts % (Manual) Absolute Neutrophils pH pCO2 pO2 FiO2 % Potassium 4.3 Creatinine 1.00 Troponin I 0.06 Hew-H-Jfjtdgkzhdz Pept EKG left bundle branch block Preliminary echo EF in the range of 35% - Assessment/Plan (1) Hypertensive heart disease I11.9 - HYPERTENSIVE HEART DISEASE WITHOUT HEART FAILURE Acute Present on Admission: Yes with heart failure I11.0 - Hypertensive heart disease with heart failure Comment: Clinically she has decompensated heart failure, I am told that the preliminary echo shows significant LV systolic dysfunction. She is improved with diuresis remains edematous and continue IV diuretics. She would benefit from heart failure education on home heart failure outpatient program. I would continue her low-dose beta-pierre especially with her worsened chronic lung disease we can up titrate as an outpatient continue her GIL-inhibitor and add spironolactone following renal function closely. She would made to have her left ventricular systolic function reassessed after 6-12 weeks and of unimproved there may be a role for biventricular pacing with EF reduced 35% her last and decompensated heart failure unresponsive to medical therapy. This seems to be much more effective modality in women that man. Electively as an outpatient she should have a repeat ischemia evaluation but there is no indication of acute coronary syndrome. (2) COPD exacerbation J44.1 - CHRONIC OBSTRUCTIVE PULMONARY DISEASE W (ACUTE) EXACERBATION Acute Comment: Improved managed by the hospitalist continue current treatment (3) Elevated brain natriuretic peptide (BNP) level R79.89 - OTHER SPECIFIED ABNORMAL FINDINGS OF BLOOD CHEMISTRY Acute Comment: Due to heart failure see discussion under hypertensive heart disease with heart failure (4) Left bundle branch block (LBBB) I44.7 - LEFT BUNDLE-BRANCH BLOCK, UNSPECIFIED Acute Comment: With associated cardiomyopathy and heart failure Case Care Discussed with: Patient (And Dr. Trevino)
[2016-04-14] MEDS: POTASSIUM CHLORIDE 20 MEQ TAB PO SCH ×2 (08:57→17:04)
[2016-04-14] MEDS: Aspirin (Orange Enteric Coated) 325 mg tab PO SCH (08:57)
[2016-04-14] MEDS: CARVEDILOL 6.25 MG TAB PO SCH ×2 (08:58→19:29)
[2016-04-14] MEDS: FLUTICASONE PROPIONATE 16 GM BOT NAS SCH (08:58)
[2016-04-14] MEDS: Loratadine 10 MG TAB PO SCH (08:58)
[2016-04-14] MEDS: CHOLECALCIFEROL 1000 UNITS TAB PO SCH (08:59)
[2016-04-14] MEDS: LISINOPRIL 5 MG TAB PO SCH (08:59)
[2016-04-14] MEDS: BuPROPion 150 MG XL TAB PO SCH ×2 (08:59→19:30)
[2016-04-14] MEDS: CYANOCOBALAMIN (Vitamin B-12) 500 MCG TABLET PO SCH (09:00)
[2016-04-14] MEDS ORDERED: Non-Formulary Medication ITEM (Cholecalciferol (Vitamin D3) [Vitamin D3] 5,000 UNIT) PO SCH (09:00)
[2016-04-14] MEDS ORDERED: CYANOCOBALAMIN 500 MCG SL SCH (09:00)
[2016-04-14] MEDS: SPIRONOLACTONE 25 MG TAB PO SCH (09:04)
--- NOTE | 2016-04-14 10:35 | GENMEDPROG ---
Chief Complaint: New onset heart failure, COPD exacerbation Subjective Note: Doing well, feels like her respiratory status is already slightly improved. Was seen by Dr. Aponte of Cardiology this morning in consultation. Notes Reviewed: Yes Events from last night noted and discussed with Clinical Staff Current Medication List: Reviewed Currently: Reports: Cough, SOB DVT Prophylaxis: Yes - Physical Examination Vital Signs and I&O: Last Vital Signs Temp 98.3 F 04/14/16 07:55 Pulse 91 04/14/16 07:55 Resp 20 04/14/16 07:55 BP 166/80 04/14/16 07:55 Pulse Ox 94 04/14/16 07:55 Oxygen Pulse Oxygen Saturation 94 O2 Device Venturi Mask Oxygen Flow Rate 4 Fraction of Inspired Oxygen ( 40 FIO2) Intake & Output 04/12/16 04/13/16 04/14/16 04/15/16 06:59 06:59 06:59 06:59 Intake Total 150 240 Output Total 1300 200 Balance -1150 40 General: Alert, Oriented x3, No acute distress, Well appearing, Well nourished, Other (Normal and appropriate affect) HEENT: EOMI (Sclera white) Lymphatics: Normal (no adenopathy) Respiratory: Diminished (Diminished breath sounds no rales or wheezing today), Wheezes (BILATERAL). negative: Rhonchi (BILATERAL) Cardiovascular: Regular rate, No Gallops,Rubs/Murmurs GI: Normal bowel sounds, Soft, Non tender (non distended) Extremities/Musculoskeletal: Other (Normal Tone). negative: Edema, Cyanosis Skin: No rashes, No significant lesion Lab/DI/Studies Reviewed: Laboratory Tests 04/13/16 04/14/16 04/14/16 16:56 04:40 04:40 WBC 14.7 H 12.5 H Potassium 4.3 BUN 24 H Creatinine 1.00 - Assessment (1) Acute respiratory failure with hypoxia Acute J96.01 - ACUTE RESPIRATORY FAILURE WITH HYPOXIA Comment/Plan: Patient with significant dyspnea at the time of admission, not improving. Now currently improving finally with some IV diuretic and treatment of her COPD exacerbation. Likely combination of COPD exacerbation as well as acute undiagnosed CHF exacerbation. Patient's PO2 is low at only 41%. Peripheral O2 sat 84%. Plan: Place patient on oxygen by Venti Mask 40% and increase as needed. Monitor oxygen saturation levels and keep O2 sats greater than 92%. Update: Patient was improving but then slightly worse after talking. Trial of BiPAP, 12/31, and titrate. Treat COPD exacerbation as well as heart failure exacerbation as noted below. (2) Abnormal glucose Acute R73.09 - OTHER ABNORMAL GLUCOSE Comment/Plan: Patient reports she has borderline diabetes. Plan: Hold oral diabetes medications. Check fingerstick blood sugars q ac and hs. Sliding scale insulin. Ordered A1c and urine microalbumin. (3) COPD exacerbation Acute J44.1 - CHRONIC OBSTRUCTIVE PULMONARY DISEASE W (ACUTE) EXACERBATION Comment/Plan: COPD exacerbation, severe. Plan: Nebs of Duoneb q 6 hours scheduled and albuterol q 2 hours prn. Sputum culture ordered. IV ceftriaxone and IV azithromycin. IV methylprednisolone. Continuous oxygen support. Keep sats below 95% due to COPD. (4) Elevated brain natriuretic peptide (BNP) level Acute R79.89 - OTHER SPECIFIED ABNORMAL FINDINGS OF BLOOD CHEMISTRY Comment/ Plan: Elevated BNP and CXR with cardiomegaly and possible mild pulmonary edema. No history of CHF. Does have LBBB. Echocardiogram results from past: none. Plan: Admit to PCU with telemetry. Consider mild CHF as possible diagnosis. CHF order set. Diet of 2 g Na. Daily weights with strict I/O's. No IVF unless patient is NPO. As tolerated, give beta pierre. Give GIL inhibitor or ARB. Give Lasix IV scheduled. Replace potassium. Monitor heart rate, blood pressure, and respiratory status carefully. Provide support with oxygen as needed. Provide teaching regarding heart failure, 2g Na diet, daily weights, signs of acute heart failure. Will consult tower air traffic control specialist for opinion. Discussed case in detail with Dr. Aponte , who will consult. Appreciate assistance from Dr. Aponte. (5) Hypertensive heart disease Acute I11.9 - HYPERTENSIVE HEART DISEASE WITHOUT HEART FAILURE Qualifiers: Heart failure presence: with heart failure Qualified Code(s): I11.0 - Hypertensive heart disease with heart failure (6) Hypertensive urgency Acute I16.0 - HYPERTENSIVE URGENCY Comment/Plan: Blood pressures 188-200/70- 93 in the emergency department. Plan: Start carvedilol bid. Start lisinopril. Lasix ordered. Additional medications if needed. (7) Left bundle branch block (LBBB) Acute I44.7 - LEFT BUNDLE-BRANCH BLOCK, UNSPECIFIED Comment/Plan: Initially thought that LBBB could be new; there was no old EKG for comparison. Discussed case with Dr. Aponte, who reviewed his office records to find that she did have LBBB when she was evaluated in 2011. Greatly appreciate the assistance of Dr. Aponte. (8) Tobacco abuse Acute Z72.0 - TOBACCO USE Comment/Plan: Counseled to quit. (9) Acute cystitis without hematuria Suspected N30.00 - ACUTE CYSTITIS WITHOUT HEMATURIA Comment/Plan: Did not have dysuria. Plan: Cultures ordered. Cover empirically with IV ceftriaxone. Await culture results. (10) Bronchopneumonia Suspected J18.0 - BRONCHOPNEUMONIA, UNSPECIFIED ORGANISM Comment/Plan: CXR suggestive of bronchitis or infectious process. She may have bronchitis or bronchopneumonia. Plan: Cultures ordered. Cover empirically with IV ceftriaxone and IV azithromycin. - Plan In summary this patient is acutely and critically ill. The patient requires treatment of vital organ failure and measures to prevent further life- threatening deterioration of the above conditions. I personally reviewed and ordered lab testing, as well as imaging. I reviewed old medical records from previous hospitalizations as available, and spent the time mentioned below in critical care of this patient including counseling and coordination of care. Case Care Discussed with: Patient, Consultants, Nursing Staff Total Time: 41
[2016-04-14] MEDS: AZITHROMYCIN 500 MG in D5W 250 ML IV SCH (17:04)
[2016-04-14] MEDS: ENOXAPARIN 60 MG/0.6 ML PFS SQ SCH (17:04)
[2016-04-14] MEDS: CEFTRIAXONE 1 GM in D5W 100 ML IV SCH (19:29)
[2016-04-14] MEDS: Docusate Sodium 100 MG CAP PO SCH (19:29)
[2016-04-14] MEDS: ATORVASTATIN 40 MG TAB PO SCH (19:30)
[2016-04-15] MEDS: Albuterol/Ipratropium Neb 3 ML NEB NEB SCH ×4 (00:52→20:25)
[2016-04-15] MEDS: METHYLPREDNISOLONE 125 MG/2 ML VIAL IV SCH ×3 (01:42→17:28)
[2016-04-15] MEDS: LEVOTHYROXINE 125 MCG (0.125 MG) TAB PO SCH (06:00)
[2016-04-15] MEDS: FUROSEMIDE 40 MG/4 ML VIAL IV SCH ×3 (06:00→20:03)
[2016-04-15] MEDS: REGULAR INSULIN 100 UNITS/ML - 3 ML VIAL SQ SCH ×2 (06:00→12:23)
[2016-04-15] MEDS: FLUTICASONE PROPIONATE 16 GM BOT NAS SCH (07:42)
[2016-04-15] MEDS: Aspirin (Orange Enteric Coated) 325 mg tab PO SCH (07:44)
[2016-04-15] MEDS: Loratadine 10 MG TAB PO SCH (07:44)
[2016-04-15] MEDS: SPIRONOLACTONE 25 MG TAB PO SCH (07:44)
[2016-04-15] MEDS: BuPROPion 150 MG XL TAB PO SCH ×2 (07:44→20:03)
[2016-04-15] MEDS: LISINOPRIL 5 MG TAB PO SCH (07:44)
[2016-04-15] MEDS: CARVEDILOL 6.25 MG TAB PO SCH ×2 (07:44→20:03)
[2016-04-15] MEDS: POTASSIUM CHLORIDE 20 MEQ TAB PO SCH ×2 (07:44→17:28)
--- NOTE | 2016-04-15 08:38 | PCM.CARD ---
- Subjective Reason for visit: For heart failure Current Assessment: No New Symptoms, Edema. negative: Chest Pain, Dizzines, Nausea, Orthopnea, Palpitations, Shortness of Breath, Vomiting Vital Signs: Last Vital Signs Temp 98.0 F 04/15/16 08:12 Pulse 83 04/15/16 08:13 Resp 04/15/16 08:12 BP 136/66 04/15/16 07:40 Pulse Ox 91 04/15/16 08:12 Vital Signs Temp 98.0 F 04/15/16 08:12 Pulse 83 04/15/16 08:13 Resp 04/15/16 08:12 BP 136/66 04/15/16 07:40 Pulse Ox 91 04/15/16 08:12 Intake & Output 04/13/16 04/14/16 04/15/16 23:59 23:59 23:59 Intake Total 150 720 300 Output Total 600 1725 1999 Balance -475 -0853 -2288 Patient's weight 270 lb 8 oz 270 lb 8 oz 250 lb 3.2 oz Intake: IV Fluids 150 Rocephin 2 gm In D5w 100 100 ml @ 200 mls/hr IV NOW ONE Rx#:[id number] Zithromax 500 mg In D5w 50 250 ml @ 250 mls/hr IV ONCE ONE Rx#:[id number] Oral 720 300 Output: Urine 600 1725 1999 Other: Elimination Method Bedside Commode Bedside Commode Bedside Commode Urine Color Straw Yellow Pale Yellow Wt Change in KG No Change 9.299 kg loss 9.208 kg loss Weight Change from 20.5 lb(s) loss 20.3 lb(s) loss Previous Weight Weight (Calculated 122.697 113.398 113.489 Kilograms) Respiratory: Diminished. negative: Rales Jugular Vein Distention: None Pulse Rhythm: Regular EKG Rhythm: Sinus Rhythm Heart Sounds: negative: S1 & S2 (Paradoxical S2), S3, Murmur Edema Type: Pitting (Lower extremities) Edema Degree: 1+ Lab/DI Results Reviewed: BMP today is pending - Assessment/Plan (1) Hypertensive heart disease Acute I11.9 - HYPERTENSIVE HEART DISEASE WITHOUT HEART FAILURE Present on Admission: Yes with heart failure I11.0 - Hypertensive heart disease with heart failure Comment/Plan: Stable continue current treatment (2) COPD exacerbation Acute J44.1 - CHRONIC OBSTRUCTIVE PULMONARY DISEASE W (ACUTE) EXACERBATION Present on Admission: Yes Comment/Plan: Improved managed by the hospitalist (3) Elevated brain natriuretic peptide (BNP) level Acute R79.89 - OTHER SPECIFIED ABNORMAL FINDINGS OF BLOOD CHEMISTRY Present on Admission: Yes Comment/Plan: She has systolic heart failure with left bundle branch block, continue current therapy which includes loop diuretic beta-pierre GIL-inhibitor spironolactone. For heart failure remains decompensated ejection fraction does not improve she would be a candidate for resynchronization therapy with a biventricular pacemaker. (4) Left bundle branch block (LBBB) Chronic I44.7 - LEFT BUNDLE-BRANCH BLOCK, UNSPECIFIED Present on Admission: Yes Comment/Plan: Now with heart failure and reduced ejection fraction
[2016-04-15 08:42] LABS: BLOOD UREA NITROGEN 42 MG/DL (7-17); CALCIUM 9.4 MG/DL (8.4-10.2); CALCULATED OSMOLALITY 279 MOs/Kg (270-290); CHLORIDE 88 mEq/L (98-107); GLUCOSE 90 MG/DL (70-99); SODIUM LEVEL 139 mEq/L (137-146)
--- NOTE | 2016-04-15 10:18 | GENMEDPROG ---
Chief Complaint: Heart failure exacerbation, COPD Subjective Note: Doing well, improving. Still on a decent amount of oxygen, she is now on nasal cannula oxygen at home. Has been having good urine output, lower extremity edema is much improved. Notes Reviewed: Yes Events from last night noted and discussed with Clinical Staff Current Medication List: Reviewed Currently: Reports: Cough, SOB DVT Prophylaxis: Yes - Physical Examination Vital Signs and I&O: Last Vital Signs Temp 98.0 F 04/15/16 08:12 Pulse 83 04/15/16 08:13 Resp 19 04/15/16 08:12 BP 136/66 04/15/16 07:40 Pulse Ox 91 04/15/16 08:12 Oxygen Pulse Oxygen Saturation 91 O2 Device Nasal Cannula Oxygen Flow Rate 4 Fraction of Inspired Oxygen ( 50 FIO2) Intake & Output 04/13/16 04/14/16 04/15/16 04/16/16 06:59 06:59 06:59 06:59 Intake Total 150 720 540 Output Total 1300 1925 2100 Balance -1150 -1205 -1560 Patient's weight 113.398 kg 113.489 kg General: Alert, Oriented x3, No acute distress, Well appearing, Well nourished, Other (Normal and appropriate affect) HEENT: EOMI (Sclera white) Lymphatics: Normal (no adenopathy) Respiratory: Diminished (Diminished breath sounds no rales or wheezing today), Wheezes (BILATERAL). negative: Rhonchi (BILATERAL) Cardiovascular: Regular rate, No Gallops,Rubs/Murmurs GI: Normal bowel sounds, Soft, Non tender (non distended) Extremities/Musculoskeletal: Other (Normal Tone). negative: Edema, Cyanosis Skin: No rashes, No significant lesion Breathing comfortably, but still with significant wheezing. Not tachypneic or significantly short of breath. Lab/DI/Studies Reviewed: Laboratory Tests 04/14/16 04/15/16 04:40 07:54 BUN 42 H Creatinine 1.00 1.10 H - Assessment (1) Acute respiratory failure with hypoxia Acute J96.01 - ACUTE RESPIRATORY FAILURE WITH HYPOXIA Comment/Plan: Patient with significant dyspnea at the time of admission, not improving. Now currently improving finally with some IV diuretic and treatment of her COPD exacerbation. Likely combination of COPD exacerbation as well as acute undiagnosed CHF exacerbation. Patient's PO2 is low at only 41%. Peripheral O2 sat 84%. Plan: Place patient on oxygen by Venti Mask 40% and increase as needed. Monitor oxygen saturation levels and keep O2 sats greater than 92%. Update: Patient was improving but then slightly worse after talking. Trial of BiPAP, 12/31, and titrate. Treat COPD exacerbation as well as heart failure exacerbation as noted below. (2) Abnormal glucose Acute R73.09 - OTHER ABNORMAL GLUCOSE Comment/Plan: Patient reports she has borderline diabetes. Plan: Hold oral diabetes medications. Check fingerstick blood sugars q ac and hs. Sliding scale insulin. Ordered A1c and urine microalbumin. (3) COPD exacerbation Acute J44.1 - CHRONIC OBSTRUCTIVE PULMONARY DISEASE W (ACUTE) EXACERBATION Comment/Plan: COPD exacerbation, severe. Plan: Nebs of Duoneb q 6 hours scheduled and albuterol q 2 hours prn. Sputum culture ordered. IV ceftriaxone and IV azithromycin. IV methylprednisolone. Continuous oxygen support. Keep sats below 95% due to COPD. (4) Elevated brain natriuretic peptide (BNP) level Acute R79.89 - OTHER SPECIFIED ABNORMAL FINDINGS OF BLOOD CHEMISTRY Comment/ Plan: Elevated BNP and CXR with cardiomegaly and possible mild pulmonary edema. No history of CHF. Does have LBBB. Echocardiogram results from past: none. She is as echo done here, awaiting results. Plan: Admit to PCU with telemetry. Consider mild CHF as possible diagnosis. CHF order set. Diet of 2 g Na. Daily weights with strict I/O's. No IVF unless patient is NPO. As tolerated, give beta pierre. Give GIL inhibitor or ARB. Give Lasix IV scheduled. Replace potassium. Monitor heart rate, blood pressure, and respiratory status carefully. Provide support with oxygen as needed. Provide teaching regarding heart failure, 2g Na diet, daily weights, signs of acute heart failure. Dr. Aponte is consulted and is following along. (5) Hypertensive heart disease Acute I11.9 - HYPERTENSIVE HEART DISEASE WITHOUT HEART FAILURE Qualifiers: Heart failure presence: with heart failure Qualified Code(s): I11.0 - Hypertensive heart disease with heart failure (6) Hypertensive urgency Acute I16.0 - HYPERTENSIVE URGENCY Comment/Plan: Blood pressures 188-200/70- 93 in the emergency department. Plan: Start carvedilol bid. Start lisinopril. Lasix ordered. Additional medications if needed. (7) Left bundle branch block (LBBB) Acute I44.7 - LEFT BUNDLE-BRANCH BLOCK, UNSPECIFIED Comment/Plan: Initially thought that LBBB could be new; there was no old EKG for comparison. Discussed case with Dr. Aponte, who reviewed his office records to find that she did have LBBB when she was evaluated in 2012. Greatly appreciate the assistance of Dr. Aponte. (8) Tobacco abuse Acute Z72.0 - TOBACCO USE Comment/Plan: Counseled to quit. (9) Acute cystitis without hematuria Suspected N30.00 - ACUTE CYSTITIS WITHOUT HEMATURIA Comment/Plan: Did not have dysuria. Plan: Cultures ordered. Cover empirically with IV ceftriaxone. Await culture results. (10) Bronchopneumonia Suspected J18.0 - BRONCHOPNEUMONIA, UNSPECIFIED ORGANISM Comment/Plan: CXR suggestive of bronchitis or infectious process. She may have bronchitis or bronchopneumonia. Plan: Cultures ordered. Cover empirically with IV ceftriaxone and IV azithromycin.
[2016-04-15] MEDS: CHOLECALCIFEROL 1000 UNITS TAB PO SCH (12:22)
[2016-04-15] MEDS: CYANOCOBALAMIN (Vitamin B-12) 500 MCG TABLET PO SCH (12:22)
[2016-04-15] MEDS: AZITHROMYCIN 500 MG in D5W 250 ML IV SCH (17:29)
[2016-04-15] MEDS ORDERED: ENOXAPARIN 60 MG/0.6 ML PFS SQ SCH (18:00)
[2016-04-15] MEDS: CEFTRIAXONE 1 GM in D5W 100 ML IV SCH (19:52)
[2016-04-15] MEDS: Docusate Sodium 100 MG CAP PO SCH (20:03)
[2016-04-15] MEDS: ATORVASTATIN 40 MG TAB PO SCH (20:03)
[2016-04-16] MEDS: METHYLPREDNISOLONE 125 MG/2 ML VIAL IV SCH ×2 (00:27→07:48)
[2016-04-16] MEDS: Albuterol/Ipratropium Neb 3 ML NEB NEB SCH ×2 (02:00→09:28)
[2016-04-16] MEDS: LEVOTHYROXINE 125 MCG (0.125 MG) TAB PO SCH (05:30)
[2016-04-16] MEDS: FUROSEMIDE 40 MG/4 ML VIAL IV SCH (05:30)
[2016-04-16] MEDS: Loratadine 10 MG TAB PO SCH (07:47)
[2016-04-16] MEDS: FLUTICASONE PROPIONATE 16 GM BOT NAS SCH (07:47)
[2016-04-16] MEDS: POTASSIUM CHLORIDE 20 MEQ TAB PO SCH (07:47)
[2016-04-16] MEDS: CYANOCOBALAMIN (Vitamin B-12) 500 MCG TABLET PO SCH (07:48)
[2016-04-16] MEDS: Aspirin (Orange Enteric Coated) 325 mg tab PO SCH (07:48)
[2016-04-16] MEDS: CHOLECALCIFEROL 1000 UNITS TAB PO SCH (07:49)
[2016-04-16] MEDS: BuPROPion 150 MG XL TAB PO SCH (07:49)
--- NOTE | 2016-04-16 07:50 | PCM.CARD ---
- Subjective Reason for visit: For heart failure Current Assessment: No New Symptoms. negative: Chest Pain, Dizzines, Edema, Nausea, Orthopnea, Palpitations, Shortness of Breath (However she has hypoxia at baseline and ambulatory in the hallways and be set up for home oxygen with her COPD), Vomiting Vital Signs: Last Vital Signs Temp 98.1 F 04/16/16 04:00 Pulse 85 04/16/16 07:06 Resp 18 04/16/16 05:36 BP 137/63 04/16/16 04:00 Pulse Ox 89 L 04/16/16 05:36 Vital Signs Temp 98.1 F 04/16/16 04:00 Pulse 85 04/16/16 07:06 Resp 18 04/16/16 05:36 BP 137/63 04/16/16 04:00 Pulse Ox 89 L 04/16/16 05:36 Intake & Output 04/14/16 04/15/16 04/16/16 23:59 23:59 23:59 Intake Total 720 1178 Output Total 1725 3800 1000 Balance -1005 -2622 -1000 Patient's weight 270 lb 8 oz 250 lb 3.2 oz 246 lb 12.8 oz Intake: IV Fluids 398 Left Antecubital 398 Peripheral Oral 720 780 Output: Urine 1725 3800 1000 Other: Elimination Method Bedside Commode Bedside Commode Bedside Commode Urine Color Yellow Pale Yellow Yellow Number of Bowel Movements 1 Stool Size Large Stool Description Soft Loose Wt Change in KG 9.299 kg loss 9.208 kg loss 1.542 kg loss Weight Change from 20.5 lb(s) loss 20.3 lb(s) loss 3.4 lb(s) loss Previous Weight Weight (Calculated 113.398 113.489 111.947 Kilograms) Respiratory: Diminished. negative: Rales, Rhonchi, Wheezes Jugular Vein Distention: None Pulse Rhythm: Regular EKG Rhythm: Sinus Rhythm EKG Ectopy: negative: Runs >10 beats Heart Sounds: Murmur (One of 6 ejection murmur peaks early left sternal border to the aortic area Her peripheral edema is resolved), Distant. negative: S1 & S2 (Paradoxical 2nd heart sound, left bundle branch block) Lab/DI Results Reviewed: Selected Entries 04/15/16 04/16/16 05:36 04:49 Patient's 250 lb 3.2 oz 246 lb 12.8 oz weight Laboratory Tests 04/13/16 04/15/16 16:56 07:54 Potassium 4.7 Creatinine 1.10 H [id number] Pept 7120 H 4090 H - Assessment/Plan (1) Hypertensive heart disease Acute I11.9 - HYPERTENSIVE HEART DISEASE WITHOUT HEART FAILURE Present on Admission: Yes with heart failure I11.0 - Hypertensive heart disease with heart failure Comment/Plan: Stable improved she will transition to oral diuretic today I will arrange office follow-up. (2) COPD exacerbation Acute J44.1 - CHRONIC OBSTRUCTIVE PULMONARY DISEASE W (ACUTE) EXACERBATION Present on Admission: Yes Comment/Plan: Improved she will require ambulatory oxygen (3) Elevated brain natriuretic peptide (BNP) level Acute R79.89 - OTHER SPECIFIED ABNORMAL FINDINGS OF BLOOD CHEMISTRY Present on Admission: Yes Comment/Plan: Due to heart failure (4) Left bundle branch block (LBBB) Chronic I44.7 - LEFT BUNDLE-BRANCH BLOCK, UNSPECIFIED Present on Admission: Yes Comment/Plan: Stable, if she remains with symptomatic heart failure in her ejection fraction does not improve she would be a candidate for cardiac resynchronization. I would delay follow-up echocardiogram for at least 6-12 weeks. She is on guideline directed medical therapy including loop diuretic beta-pierre Gumaro and Arb.
[2016-04-16] MEDS: LISINOPRIL 5 MG TAB PO SCH (07:51)
[2016-04-16] MEDS: CARVEDILOL 6.25 MG TAB PO SCH (07:51)
[2016-04-16] MEDS: SPIRONOLACTONE 25 MG TAB PO SCH (07:51)
[2016-04-16 10:00] LABS: BLOOD UREA NITROGEN 50 MG/DL (7-17); CALCIUM 9.4 MG/DL (8.4-10.2); CALCULATED OSMOLALITY 289 MOs/Kg (270-290); CHLORIDE 89 mEq/L (98-107); GLUCOSE 227 MG/DL (70-99); SODIUM LEVEL 140 mEq/L (137-146)
--- NOTE | 2016-04-16 10:05 | PCM.DCS92 ---
- Final/Secondary Discharge Diagnosis (1) Acute respiratory failure with hypoxia Acute J96.01 - ACUTE RESPIRATORY FAILURE WITH HYPOXIA Present on Admission: Yes Comment: Patient with significant dyspnea at the time of admission, not improving. Now currently improving finally with some IV diuretic and treatment of her COPD exacerbation. Likely combination of COPD exacerbation as well as prior acute undiagnosed CHF exacerbation. Patient's PO2 is low at only 41%. Peripheral O2 sat 84%. Plan: Place patient on oxygen by Venti Mask 40% and increase as needed. Monitor oxygen saturation levels and keep O2 sats greater than 92%. Update: Patient improving overall, on nasal cannula oxygen. She was ambulated on room air this morning and desaturated to the mid 80s. As such, she will be discharged home on 2 L nasal cannula oxygen. (2) Abnormal glucose Acute R73.09 - OTHER ABNORMAL GLUCOSE Present on Admission: Yes Comment: Patient reports she has borderline diabetes. Plan: Hold oral diabetes medications. Hemoglobin A1c of 6.5. Patient instructed to lose weight, alter her diet. Sliding scale insulin. Ordered A1c and urine microalbumin. (3) COPD exacerbation Acute J44.1 - CHRONIC OBSTRUCTIVE PULMONARY DISEASE W (ACUTE) EXACERBATION Present on Admission: Yes Comment: COPD exacerbation, severe. Plan: Nebs of Duoneb q 6 hours scheduled and albuterol q 2 hours prn. Sputum culture ordered. IV ceftriaxone and IV azithromycin, patient will discharge home today to complete a course of p.o. antibiotics as well as p.o. steroid taper IV methylprednisolone. Continuous oxygen support. Keep sats below 95% due to COPD. (4) Elevated brain natriuretic peptide (BNP) level Acute R79.89 - OTHER SPECIFIED ABNORMAL FINDINGS OF BLOOD CHEMISTRY Present on Admission: Yes Comment: Elevated BNP and CXR with cardiomegaly and possible mild pulmonary edema. No history of CHF. Does have LBBB. Echocardiogram results from past: none. She is as echo done here, awaiting results. Plan: Admit to PCU with telemetry. Consider mild CHF as possible diagnosis. CHF order set. Diet of 2 g Na. Daily weights with strict I/O's. No IVF unless patient is NPO. As tolerated, give beta pierre. Give GIL inhibitor or ARB. Give Lasix IV scheduled. Replace potassium. Monitor heart rate, blood pressure, and respiratory status carefully. Provide support with oxygen as needed. Provide teaching regarding heart failure, 2g Na diet, daily weights, signs of acute heart failure. Dr. Aponte is consulted and is following along. (5) Hypertensive heart disease Acute I11.9 - HYPERTENSIVE HEART DISEASE WITHOUT HEART FAILURE Present on Admission: Yes with heart failure I11.0 - Hypertensive heart disease with heart failure (6) Hypertensive urgency Acute I16.0 - HYPERTENSIVE URGENCY Present on Admission: Yes Comment: Blood pressures 188-200/70-93 in the emergency department. Plan: Start carvedilol bid. Start lisinopril. Lasix ordered. Additional medications if needed. (7) Left bundle branch block (LBBB) Chronic I44.7 - LEFT BUNDLE-BRANCH BLOCK, UNSPECIFIED Present on Admission: Yes Comment: Initially thought that LBBB could be new; there was no old EKG for comparison. Discussed case with Dr. Aponte, who reviewed his office records to find that she did have LBBB when she was evaluated in 2012. Greatly appreciate the assistance of Dr. Aponte. (8) Tobacco abuse Acute Z72.0 - TOBACCO USE Present on Admission: Yes Comment: Counseled to quit. (9) Acute cystitis without hematuria Suspected N30.00 - ACUTE CYSTITIS WITHOUT HEMATURIA Present on Admission: Yes Comment: Did not have dysuria. Plan: Cultures ordered. Cover empirically with IV ceftriaxone. Await culture results. (10) Bronchopneumonia Suspected J18.0 - BRONCHOPNEUMONIA, UNSPECIFIED ORGANISM Present on Admission: Yes Comment: CXR suggestive of bronchitis or infectious process. She may have bronchitis or bronchopneumonia. Plan: Cultures ordered. Cover empirically with IV ceftriaxone and IV azithromycin. Discharge Disposition: Home Discharge Condition: Good Cognitive Discharge Status: Unimpaired Fuctional Discharge Status: Independent Physician Follow up/Referrals: Ester Siddiqui, [employer] [Primary Care Provider] - Listed Time Home Medications / New Prescriptions: New Albuterol Sulfate [Ventolin] 3 ml NEB Q2H PRN 30 Days PRN Reason: Wheezing Atorvastatin Calcium [Lipitor] 40 mg PO HS #30 tablet Azithromycin [Zithromax] 500 mg PO DAILY #2 tablet Carvedilol [Coreg] 6.25 mg PO BID #60 tablet Cefdinir [Omnicef] 300 mg PO BID 2 Days Lisinopril [Zestril] 5 mg PO DAILY #30 tablet Nebulizer [Erapid Nebulizer] 1 each MC DIR #1 each Nebulizer Accessories [Sootheneb [id number] Adult Mask] 1 each MC DIR #1 each Prednisone [Sterapred Ds] 10 mg PO DIR #21 pack Spironolactone [Aldactone] 12.5 mg PO DAILY #30 tablet Varenicline [Chantix] 0.5 mg PO DIR #60 tablet Torsemide [Demadex] 20 mg PO LASBID #60 tablet Continue Tramadol HCl [Ultram] 50 mg PO Q6H PRN PRN Reason: Pain Levothyroxine [Synthroid, Levoxyl] 125 mcg PO DAILY BuPROPion (Daily formulation) [Wellbutrin Xl] 150 mg PO BID Metformin HCl [Metformin HCl ER] 500 mg PO QHS Fluticasone Propionate [Flonase] 2 spray ZAIN DAILY Tiotropium Brandt [Spiriva Respimat] 4 gm INH DAILY Cholecalciferol (Vitamin D3) [Vitamin D3] 5,000 unit PO DAILY Cyanocobalamin (Vitamin B-12) [Vitamin B-12] 1,000 mcg SL DAILY Loratadine [Claritin] 10 mg PO DAILY Aspirin (Enteric Coated) [Halfprin] 81 mg PO DAILY Docusate Sodium [Colace] 100 mg PO HS Ubidecarenone [Coq-10] Discontinued Triamterene/Hydrochlorothiazid [Triamterene-Hctz 37.5-25 mg Tb] 1 tab PO DAILY Pravastatin [Pravachol] 40 mg PO HS Albuterol Sulfate [Ventolin Hfa] 1 - 2 puff INH Q4H PRN PRN Reason: SHORTNESS OF BREATH O2 Device: Room Air Diet at Discharge: Diabetic Activity: No Restrictions Call Office For: Worsening Symptoms - DC Summary Notes HPI/Notes: This is a 70-year-old female with a history of COPD was admitted to the hospital with COPD exacerbation, she was also found to be in acute heart failure. She was seen by Dr. Aponte of Cardiology, who directed her aggressive IV diuresis to which she responded well. She is back to her baseline pulmonary status, though she is requiring some oxygen will be discharged home on nasal cannula oxygen today. She will be discharged home today to complete a course of p.o. antibiotics, as well as p.o. steroid taper for COPD exacerbation. She will also be discharging home on appropriate heart failure medications, as well as a regular oral diuretic. She will follow up with Cardiology as an outpatient. Please see the hospital problems and discharge problems above for details of the hospital course including diagnostics and treatment. The plan of care including medications, prognosis, follow-up including alarm symptoms for which medical care should be sought were reviewed with the patient and any available family members/caretakers. The patient is agreeable to discharge today, and all questions were answered by me to their satisfaction. Hospital Course Note:: Discharge summary on patient named EJ PEREZ admitted to [facility] on 04/13/16 by Kai Trevino MD. Date of discharge is []. Total Time: 43 - Physical Exam Vital Signs: Last Vital Signs Temp 98.1 F 04/16/16 08:17 Pulse 85 04/16/16 09:04 Resp 19 04/16/16 08:17 BP 141/67 04/16/16 08:17 Pulse Ox 84 L 04/16/16 08:26 Oxygen Pulse Oxygen Saturation 84 O2 Device Room Air Oxygen Flow Rate 4 Fraction of Inspired Oxygen ( 50 FIO2) Constitutional: No apparent distress (She relates she is quite improved since admission to the hospital), Alert (Awake) Oriented to: Time, Person, Place - HEENT Head: Normal (She has no neck vein distention bruit or thyromegaly) Eye: Normal (PERRL, EOMI, Sclera white) Oropharynx: Normal (Pharynx:Moist without exudate,Gums-no swelling) Tympanic Membrane: Normal ENT EAC: Normal TMJ: Normal Nose: No Symptoms Reported (septum midline) - Respiratory/Cardiovascular Respiratory: Diminished. negative: Rales, Rhonchi, Wheezes Cardiovascular: Normal (RRR , Normal S1, S2. No murmurs, rubs, or gallops. PMI non-displaced. Carotids: no carotid bruits. No bradycardia or tachycardia. DP pulses 2+ bilaterally.) - GI Auscultation: Normal (No enlargement in liver spleen aorta nontender nondistended active bowel sounds) Palpation: Normal (Soft,No rebound or guarding, non distended) Tenderness: Non tender - Musculoskeletal Back: Normal (Non-Tender) Extremities: Normal (Normal tone, Pulses 2+ No cyanosis or edema, FROM), Edema ( Plus one pretibial edema), Femoral Pulse, Pedal Edema, Pedal Pulse, Radial Pulse. negative: Calf Tenderness, Clubbing, Cyanosis - Integumentary Lymphatics: Normal (no adenopathy) - Neurologic Memory Impaired: Normal Cerebellar: Normal Mood Description: Normal Perception: Normal
[2016-04-16 12:18] VITALS: BP 113/56; PULSE 78; TEMP 98.7
[2016-04-16] MEDS ORDERED: TORSEMIDE 20 MG TAB PO SCH (16:00)
--- NOTE | 2016-04-21 12:22 | CAPUECHO ---
INDICATION: PULMONARY EDEMA HEIGHT: 170.2 cm (5 ft 7.0 in) WEIGHT: 122.5 kg (270.0 lbs) BP: 127/58 BSA: 2.257780 m MEASUREMENTS 2D RVIDd: 2.7 cm IVSd: 1.2 cm LVIDd: 5.8 cm LVPWd: 1.2 cm LVIDs: 4.7 cm EF(Teich): 39.78 % EF Biplane: 32.74 % LAESV MOD A4C: 61.4 ml LAESV MOD A2C: 59.6 ml LAESV Index (A-L): 30.02 ml/m M-MODE Ao Diam: 3.1 cm LA Diam: 3.6 cm DOPPLER MV E Grey: 1.15 m/s MV A Grey: 1.46 m/s MV PHT: 61.75 ms MVA By PHT: 3.56 cm LVOT Vmax: 0.98 m/s AV Vmax: 1.49 m/s TR Vmax: 2.99 m/s TR maxP mmHg RVSP: 45.83 mmHg FINDINGS ------- Procedure:2D images, m-mode, color and spectral Doppler were obtained and reviewed. ECG rhythm:Sinus rhythm. Study quality:This was a technically difficult study with suboptimal views. Left Ventricle:The left ventricular size is normal. There is mild concentric left ventricular hyper trophy. Overall left ventricular systolic function is moderate-severely impaired with, an EF betwe en 30 - 35 %. The diastolic filling pattern indicates impaired relaxation. Mid anterior LV wall motion is hypokinetic. Mid anteroseptal LV wall motion is hypokinetic. Apical anterior LV wall motion is hypokinetic. Apical septum LV wall motion is hypokinetic. Right Ventricle:The right ventricle is normal in size and function. Left Atrium:The left atrium is normal in size. Right Atrium:The right atrium is normal in size and function. Aortic Valve:The aortic valve is trileaflet and appears structurally normal. There is mild aortic valve sclerosis. There is mild aortic regurgitation. Mitral Valve:Normal appearing mitral valve. Mild mitral annular calcification present. Mild christelle ral regurgitation is present. Tricuspid Valve:The tricuspid valve appears structurally normal. Mild tricuspid regurgitation pres ent. The right ventricular systolic pressure, as measured by Doppler, is 46mmhg. Pulmonic Valve:The pulmonic valve is normal. Trace/mild (physiologic) pulmonic regurgitation. Aorta:The aortic root, ascending aorta and aortic arch appear normal. IVC:Normal inferior vena cava with normal inspiratory collapse. Pericardium:There is no pericardial effusion. CONCLUSIONS 1. Overall left ventricular systolic function is moderate-severely impaired with, an EF between 30 - 35 %. 2. The diastolic filling pattern indicates impaired relaxation. 3. Mid anterior LV wall motion is hypokinetic. 4. Mid anteroseptal LV wall motion is hypokinetic. 5. Apical anterior LV wall motion is hypokinetic. 6. Apical septum LV wall motion is hypokinetic. 7. The left atrium is normal in size. 8. There is mild aortic regurgitation. 9. Mild mitral regurgitation is present. 10. Mild tricuspid regurgitation present. 11. The right ventricular systolic pressure, as measured by Doppler, is 46mmhg. Electronically Signed By: Juan Pablo Dixon MD -- Electronically Signed On: 12:21:24
== END 2016-04-16 14:50 | disposition home or self-care (01) | DRG 291 ==
LOC: ED 16:25 → PCU 18:28
PROVIDERS: ADMIT Internal Medicine; ATTEND Internal Medicine
PROC: 039B3ZZ Drainage of Right Radial Artery, Percutaneous Approach (ICD-10-PCS; principal; 2016-04-13)
DX: I11.0 Hypertensive heart disease with heart failure (principal); J96.01 Acute respiratory failure with hypoxia; J18.0 Bronchopneumonia, unspecified organism; J44.1 Chronic obstructive pulmonary disease with (acute) exacerbation; N30.00 Acute cystitis without hematuria; J44.0 Chronic obstructive pulmonary disease with (acute) lower respiratory infection; I44.7 Left bundle-branch block, unspecified; I50.9 Heart failure, unspecified; I16.0 Hypertensive urgency; F17.210 Nicotine dependence, cigarettes, uncomplicated; E78.5 Hyperlipidemia, unspecified; E78.00 Pure hypercholesterolemia, unspecified; J45.909 Unspecified asthma, uncomplicated; Z79.899 Other long term (current) drug therapy; R73.03 Prediabetes; I50.20 Unspecified systolic (congestive) heart failure
CPT/HCPCS: 36415; 36600; 71010; 80048; 80053; 80061; 81001; 82043; 82550; 82803; 82962; 83036; 83605; 83735; 83880; 84484; 85007; 85027; 85610; 85730; 87040; 87070; 87077; 87086; 87186; 87205; 93005; 93306; 94640; 94660; 96365; 96366; 96372; 96375; 97161; 98960; 99284; 99406; J0456; J0696; J1650; J1940; J2930; J3490; J7060; J7070; J7620